=== PATIENT | female | born 2000 | race Caucasian/White ===

== ENCOUNTER 2022-01-23 12:10 | Emergency (ER) | payer OTHER ==
[~2022-01-23] VITALS: Ht 157.5 cm; Wt 80.3 kg
[2022-01-23 12:20] VITALS: BP 124/75
--- NOTE | 2022-01-23 12:35 | NUR ---
Patient ambulated to bed 5 with steady gait.
--- NOTE | 2022-01-23 12:40 | NUR ---
Dr. Brooks evaluating patient at bedside.
[2022-01-23 13:51] LABS: BASOPHILS % (AUTO) 0.1 % (0.0-2.0); EOSINOPHILS # (AUTO) 0.1 K/uL (0-0.4); EOSINOPHILS % (AUTO) 0.7 % (0.0-4.0); HEMATOCRIT 40.3 % (36-48); HEMOGLOBIN 13.7 g/dL (12.0-16.0); LYMPHOCYTES # (AUTO) 1.9 K/uL (2.5-16.5); LYMPHOCYTES % (AUTO) 23.7 % (20.5-51.1); MEAN CORPUSCULAR HEMOGLOBIN 32 pg (27-31); MEAN CORPUSCULAR HGB CONC 34 g/dL (33-37); MEAN CORPUSCULAR VOLUME 92.6 fL (80-94); MONOCYTES # (AUTO) 0.5 K/uL (0.8-1.0); MONOCYTES % (AUTO) 6.3 % (1.7-9.3); NEUTROPHILS # (AUTO) 5.5 K/uL (1.8-7.7); NEUTROPHILS % (AUTO) 69.2 % (42.2-75.2); PLATELET COUNT (AUTO) 191 K/uL (140-450); RED BLOOD CELL COUNT(AUTO) 4.36 MIL/uL (4.20-5.40); RED CELL DISTRIBUTION WIDTH 13.5 % (11.6-13.7); WHITE BLOOD COUNT (AUTO) 7.9 K/uL (4.8-10.8)
--- NOTE | 2022-01-23 13:52 | NUR ---
Ultrasound at bedside.
--- NOTE | 2022-01-23 14:00 | NUR ---
21 y/o female bib self with c/o vaginal spotting x today. Patient also report cramping with 7/10 pain. Patient is being evaluated by an OB. Denies any fever, chills or SOB. Medical History: Denies NKA
[2022-01-23 14:40] LABS: APPEARANCE,URINE CLEAR (CLEAR); BILIRUBIN,URINE NEGATIVE (NEGATIVE); BLOOD, URINE NEGATIVE (NEGATIVE); COLOR,URINE YELLOW (YELLOW); LEUKOCYTE ESTERASE ,URINE 1+ (NEGATIVE); NITRITE, URINE NEGATIVE (NEGATIVE); PH,URINE 7.5 (5.0-9.0); UGLUCOSE NEGATIVE (NEGATIVE)
[2022-01-23 14:56] LABS: RBC,URINE 0-5 /HPF (0-5)
[2022-01-23 14:57] LABS: OTHER CASTS, URINE None Seen /LPF (None Seen)
--- NOTE | 2022-01-23 15:16 | NUR ---
Dr. Gibson evaluating patient at bedside.
[2022-01-23 15:22] VITALS: BP 127/71
[2022-01-23] MEDS ORDERED: CEPH250C16 PO (15:24)
== END 2022-01-23 15:50 | disposition home or self-care (01) ==
LOC: MED 12:10
DX: O20.0 Threatened abortion (principal); Z3A.01 Less than 8 weeks gestation of pregnancy
CPT/HCPCS: 36415; 76817; 81001; 81025; 84702; 85025; 86900; 86901; 87086; 99284; Q0092